=== PATIENT | female | born 1960 | race Caucasian/White ===

== ENCOUNTER → 2023-10-04 11:14 | Outpatient (CLI) | payer MEDICARE, SELFPAY ==
--- NOTE | 2023-10-04 | DI.MG.S_ITS ---
BILATERAL DIGITAL SCREENING MAMMOGRAM 3D/2D WITH CAD: 10/04/2023 CLINICAL: Routine screening. Comparison is made to exam dated: 11/09/2020 mammogram - out side. There are scattered areas of fibroglandular density in both breasts (category b / 25%-50% glandular tissue). Current study was also evaluated with a Computer Aided Detection (CAD) system. There are benign post operative findings in the left breast. No significant masses, calcifications, or other findings are seen in either breast. There has been no significant interval change. IMPRESSION: BENIGN There is no mammographic evidence of malignancy. A 1 year screening mammogram is recommended. Based on the Tyrer Cuzick model (a risk assessment model) the patient's lifetime risk is 6.8% and her 10 year risk is 3.3%. According to the ACR, ACS, and NCCN guidelines, an annual breast MRI exam along with mammogram is recommended if the patient's lifetime risk is 20% or greater. This exam was interpreted at Station ID: [id number]. NOTE: For mammograms, a report in lay terms will be sent to the patient. Approximately 15% of breast malignancies will not be visualized mammographically. In the management of a palpable breast mass, a negative mammogram must not discourage biopsy of a clinically suspicious lesion. Electronically Signed By: Natanael ye/yasmani:10/04/2023 16:23:46 letter sent: Normal Exam ACR BI-RADS Category 2: Benign Finding(s) 3342F
== END ==
LOC: MAMMO 11:17
PROVIDERS: Referring Provider Registered Nurse; Visit Provider Registered Nurse
DX: Z12.31 Encounter for screening mammogram for malignant neoplasm of breast (principal); R92.323 Mammographic fibroglandular density, bilateral breasts
CPT/HCPCS: 77063; 77067

== ENCOUNTER 2023-11-24 12:45 | Emergency (ER) | payer MEDICARE, OTHER, SELFPAY ==
[2023-11-24] VITALS (11 sets, daily range): BP systolic 124–155; BP diastolic 65–89; PULSE 59–71; RESP 11–34; TEMP 36.5; O2SAT 95–100; BMI 25.6
--- NOTE | 2023-11-24 13:11 | DI.RAD.S_ITS ---
PROCEDURE: XR CHEST 1V INDICATIONS: chest pain TECHNIQUE: One view of the chest was acquired. COMPARISON: None. FINDINGS: Surgical changes and devices: None. Lungs and pleura: Lungs are clear. No pleural effusions or pneumothorax. Mediastinum: Mediastinal contours appear normal. Heart size is normal. Bones and chest wall: No suspicious bony lesions. Overlying soft tissues appear unremarkable. IMPRESSION: No acute cardiopulmonary abnormality is seen. Dictated by: Eyal Salvador M.D. on 11/24/2023 at 13:41 Approved by: Eyal Salvador M.D. on 11/24/2023 at 13:42
--- NOTE | 2023-11-24 13:17 | ED_ITS ---
HPI - General Adult General Chief complaint: Chest Pain Stated complaint: chest pain. Time Seen by Provider: 11/24/23 13:17 History of Present Illness HPI narrative: 63-year-old female presents with chest pain. She states to me that for the last several days, she has had intermittent left-sided pleuritic chest pain, worse with deep breathing and coughing, not affected by exertion. She denies similar prior symptoms. No shortness of breath, fevers or chills, nausea or vomiting, cough, rhinorrhea, sore throat, back or abdominal or flank pain, leg swelling or leg pain, personal or family history of blood clots. She denies smoking or illicit drug use. She doess have prominent family history in men on paternal side for what sounds like cardiomyopathy, though she is not sure of all details. Related Data Previous Rx's Medication Instructions Recorded doxycycline monohydrate 100 mg 100 mg PO BID #14 caps 11/24/23 capsule Allergies Allergy/AdvReac Type Severity Reaction Status Date / Time No Known Drug Allergies Allergy Verified 11/24/23 13:25 Review of Systems Review of Systems Narrative: Constitutional: no fever, no chills Eyes: no visual disturbance, no discharge Ears, Nose, Mouth, Throat: no rhinorrhea, no sore throat Cardiovascular: +chest pain, no palpitations Respiratory: + cough, no shortness of breath Gastrointestinal: no abdominal pain, no vomiting, no diarrhea Genitourinary: no dysuria, no hematuria Musculoskeletal: no back pain, no neck stiffness Skin: no rash, no wound Neurological: no focal weakness, no focal numbness Patient History Social History Smoking Status: Never smoker Exam Narrative Exam Narrative: Const: no acute distress, non toxic appearing; calm, conversant, pleasant Eyes: PERRLA, EOMI ENT: mucous membranes moist Neck: supple, non-tender Resp: no respiratory distress, clear to auscultation bilaterally Card: regular rate and rhythm, no murmurs; no chest wall tenderness Abd: non tender diffusely, no rigidity or rebound or guarding Back: no T or L spine tenderness, no CVA tenderness bilaterally Extrem: no deformities, no swelling bilateral lower extremities, 2+ distal pulses all extremities Neuro: ANOx4, warehouse processor grossly intact, grossly intact sensation and strength all extremities Skin: no rash, warm and dry Initial Vital Signs Initial Vital Signs: Vital Signs Temperature 97.7 F 11/24/23 12:47 Pulse Rate 71 11/24/23 12:47 Respiratory Rate 16 11/24/23 12:47 Blood Pressure 155/72 H 11/24/23 12:47 Pulse Oximetry 100 11/24/23 12:47 Oxygen Delivery Method Room Air 11/24/23 12:47 Course Course Course Narrative: This presentation is most suggestive of viral syndrome with associated pleuritis, bronchitis, though I have considered a broad differential including but not limited to pneumonia, ACS, pulmonary embolism, pneumothorax, CHF, asthma or COPD, among others. I am obtaining EKG, labs including troponin and D-dimer along with CBC, chemistry, viral swab, chest x-ray and will closely reassess. Patient declines medications currently. CBC reassuring. INR within normal limits. PTT mildly elevated. Chemistry grossly reassuring. Troponin reassuring. Lipase reassuring. Viral swab negative. D-dimer reassuring. EKG sinus bradycardia without acute ischemia or immediately concerning interval prolongation on my review. Radiology review of imaging below, which I agree with on my independent review: FINDINGS: Surgical changes and devices: None. Lungs and pleura: Lungs are clear. No pleural effusions or pneumothorax. Mediastinum: Mediastinal contours appear normal. Heart size is normal. Bones and chest wall: No suspicious bony lesions. Overlying soft tissues appear unremarkable. IMPRESSION: No acute cardiopulmonary abnormality is seen. Dictated by: Eyal Salvador M.D. on 11/24/2023 at 13:41 In setting of reassuring workup, I suspect bronchitis may be driving symptoms. I recommended and prescribed 1 week of doxycycline 100 mg p.o. b.i.d.. Patient nonetheless understood strict importance of close follow-up and return precautions. She had no other new concerns and appeared well. Repeat exam and vital signs reassuring. Questions answered. Plan reviewed. Patient discharged in stable condition. Orders Ordered: ED Orders 11/24/23 13:01 Complete Blood Count AUTO DIFF Stat Comprehensive Metabolic Panel Stat D Dimer Stat Lipase Stat Magnesium Stat PTT Partial Thromboplastin Joey Stat Prothrombin Time INR Stat Troponin & CK Cardiac Panel Stat 11/24/23 13:11 XR chest 1V Stat 11/24/23 13:22 EKG-12 Lead Stat 11/24/23 14:06 Covid-19 + FLU A/B + RSV - PCR Stat Discontinued Medications Aspirin (Aspirin 81 Mg Chew Tab) 324 mg PO NOW ONE Stop: 11/24/23 13:12 Last Admin: 11/24/23 14:55 Dose: Not Given Documented By: BS Vital Signs Vital signs: Vital Signs - 8 hr 11/24/23 13:30 11/24/23 13:31 11/24/23 13:31 Pulse Rate 60 59 L Respiratory Rate 21 34 H Blood Pressure 143/65 H Pulse Oximetry 98 97 Oxygen Delivery Method Room Air 11/24/23 14:07 11/24/23 14:10 11/24/23 14:10 Pulse Rate 62 61 Respiratory Rate 18 Blood Pressure 127/89 Pulse Oximetry 100 100 Oxygen Delivery Method 11/24/23 14:30 11/24/23 14:30 11/24/23 15:00 Pulse Rate 61 64 Respiratory Rate 12 11 L Blood Pressure 130/83 Pulse Oximetry 100 97 Oxygen Delivery Method Room Air 11/24/23 15:00 11/24/23 15:30 11/24/23 15:30 Pulse Rate 61 Respiratory Rate 11 L Blood Pressure 129/78 124/81 Pulse Oximetry 100 Oxygen Delivery Method Room Air Medical Decision Making Lab Data 11/24/23 13:01 11/24/23 13:01 Labs: Lab Results 11/24/23 11/24/23 Range/Units 13:01 14:06 WBC 5.7 (4.5-11.0) X10^3/uL RBC 4.47 (4.0-5.2) X10^6/uL Hgb 13.1 (12.0-16.0) g/dL Hct 38.1 (36-46) % MCV 85.3 (80-100) fL MCH 29.3 (26-34) PG MCHC 34.4 (30-36) % RDW 13.3 (11.6-14.8) % Plt Count 368 (150-400) X10^3/uL Neut % (Auto) 55.5 (50-75) % Lymph % (Auto) 36.4 (25-40) % Josephine % (Auto) 5.6 (3-14) % Eos % (Auto) 1.9 L (2-4) % Baso % (Auto) 0.6 (0-2) % Neut # (Auto) 3100 (6423-5080) /uL Lymph # (Auto) 2100 (4670-9468) /uL Josephine # (Auto) 300 (0-900) /uL Eos # (Auto) 100 (0-450) /uL Baso # (Auto) 0 (0-100) /uL PT 11.3 (9.4-12.5) SECONDS INR 1.0 (0.9-1.3) APTT 37 H (25.1-36.5) SECONDS D-Dimer 379 (<500) ng/ml Sodium 138 (137-145) mmol/L Potassium 3.7 (3.4-5.1) mmol/L Chloride 105 (98-107) mmol/L Carbon Dioxide 28 (22-32) mmol/L BUN 13 (7-17) mg/dL Creatinine 0.68 (0.52-1.04) mg/dL Estimated GFR > 60 (>60) mL/min BUN/Creatinine Ratio 19.1 (6-22) Glucose 96 (80-110) mg/dL Calcium 9.3 (8.4-10.2) mg/dL Magnesium 2.1 (1.6-2.3) mg/dL Total Bilirubin 0.6 (0.2-1.3) mg/dL AST 26 (14-36) IU/L ALT 20 (<35) IU/L Alkaline Phosphatase 53 (38-126) U/L Total Creatine Kinase 46 (30-135) U/L Troponin I < 0.012 (0.01-0.034) ng/mL Total Protein 8.0 (6.3-8.2) g/dL Albumin 4.5 (3.5-5.0) g/dL Globulin 3.5 (1.7-4.1) g/dL Albumin/Globulin Ratio 1.3 (1.0-2.8) Lipase 161 (23-300) U/L SARS-CoV-2 (PCR) Negative (Negative) Influenza A (RT-PCR) Flu a negative (NEGATIVE) Influenza B (RT-PCR) Flu b negative (NEGATIVE) RSV (PCR) Negative (Negative) Discharge Plan Departure Patient Disposition: Home Clinical Impression: Chest pain Instructions: DI for Chest Pain Activity Restrictions/Additional Instructions: It was a pleasure taking care of you today. It is important to fully read and understand the below. Please ask us if you have any questions. We think the most likely cause of your symptoms may be bronchitis or similar. I am prescribing doxycycline as discussed. However, it is still important to see your primary doctor within 3-5 days to be reassessed and discuss further testing and treatment. 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 If your symptoms change or worsen, it is very important you immediately seek medical care. If you have any new or worsening pain, lightheadedness or passing out, shortness of breath, fever, vomiting, confusion, numbness, weakness, or anything else that concerns you, please immediately seek medical care. If you have been prescribed any medications: please read the drug package inserts on how to properly use the medication and any potential side effects. If you had labs (blood tests) or imaging (CT scan or x-rays) done during your visit: please follow up on the results of these with your primary care doctor, as discussed. In addition, please know the results we received today may be preliminary. Our usual practice is to follow up on tests within a few days of a patient's discharge from the Emergency Department and notify you of any changes. These may lead to changes to your treatment plan. However, the best way to obtain and interpret these test results is through your Primary Care Provider. If you need to update your contact information, please stop by the front office attendant and alert the Registration personnel before you leave the Emergency Department. Thank you for the opportunity to participate in your healthcare. We are always here and happy to see you in the future. Prescriptions: New doxycycline monohydrate 100 mg capsule 100 mg PO BID Qty: 14 0RF Referrals: Juanita Olivares ARNP [Primary Care Provider] - Stand Alone Forms: Patient Portal/API
[2023-11-24 13:26] LABS: Add Manual Diff / Slide Review NO; Basophils Absolute Auto 0 /uL (0-100); Basophils Percent Auto 0.6 % (0-2); Eosinophils Absolute Auto 100 /uL (0-450); Eosinophils Percent Auto 1.9 % (2-4); Hematocrit 38.1 % (36-46); Hemoglobin 13.1 g/dL (12.0-16.0); Lymphocytes Absolute Auto 2100 /uL (1100-4500); Lymphocytes Percent Auto 36.4 % (25-40); Mean Corpuscular HGB Conc 34.4 % (30-36); Mean Corpuscular Hemoglobin 29.3 PG (26-34); Mean Corpuscular Volume 85.3 fL (80-100); Monocytes Absolute Auto 300 /uL (0-900); Monocytes Percent Auto 5.6 % (3-14); Neutrophils Absolute Auto 3100 /uL (1500-7000); Neutrophils Percent Auto 55.5 % (50-75); Platelet Count 368 X10^3/uL (150-400); Red Blood Cell Count 4.47 X10^6/uL (4.0-5.2); Red Cell Distribution Width 13.3 % (11.6-14.8); White Blood Cell Count 5.7 X10^3/uL (4.5-11.0)
[2023-11-24 13:29] LABS: Prothrombin Time 11.3 SECONDS (9.4-12.5)
[2023-11-24 13:31] LABS: PTT Partial Thromboplastin Tim 37 SECONDS (25.1-36.5)
[2023-11-24 13:32] LABS: Alanine Aminotransferase 20 IU/L (<35); Albumin 4.5 g/dL (3.5-5.0); Albumin Globulin Ratio 1.3 (1.0-2.8); Alkaline Phosphatase 53 U/L (38-126); Aspartate Aminotransferase 26 IU/L (14-36); BUN Creatinine Ratio 19.1 (6-22); Bilirubin Total 0.6 mg/dL (0.2-1.3); Blood Urea Nitrogen 13 mg/dL (7-17); Calcium 9.3 mg/dL (8.4-10.2); Carbon Dioxide 28 mmol/L (22-32); Chloride 105 mmol/L (98-107); Creatine Kinase 46 U/L (30-135); Estimated Glomerular Filt Rate > 60 mL/min (>60); Globulin 3.5 g/dL (1.7-4.1); Glucose 96 mg/dL (80-110); HEMOLYSIS < 15 (0-50); Lipase 161 U/L (23-300); Magnesium 2.1 mg/dL (1.6-2.3); Potassium 3.7 mmol/L (3.4-5.1); Sodium 138 mmol/L (137-145)
[2023-11-24 13:43] LABS: Troponin I < 0.012 ng/mL (0.01-0.034)
[2023-11-24 14:11] LABS: D Dimer 379 ng/ml (<500)
[2023-11-24 15:18] LABS: Influenza A - CEPHEID Flu A NEGATIVE (NEGATIVE); Influenza B - CEPHEID Flu B NEGATIVE (NEGATIVE); Respiratory Syncytial Virus Negative (Negative)
[2023-11-24 15:19] LABS: COVID-19 CEPHEID 4-PLEX PCR Negative (Negative)
== END 2023-11-24 15:41 | disposition home or self-care (01) ==
PROVIDERS: Emergency Provider Emergency Medicine; PCP Registered Nurse
DX: R07.9 Chest pain, unspecified (principal)
CPT/HCPCS: 0241U; 36415; 71045; 80053; 82550; 83690; 83735; 84484; 85025; 85379; 85610; 85730; 93005; 99284

== ENCOUNTER → 2023-12-26 09:43 | Outpatient (CLI) | payer MEDICARE, OTHER, SELFPAY ==
--- NOTE | 2023-12-26 | DI.RAD.S_ITS ---
Bone Density Report Name: ESEQUIEL SILVESTRE Age: 63 Sex: Female Ethnicity: White Date of : 1960 Indication: postmenopausal; screening for osteoporosis; Referring Provider: JOSE DE LUNA Study: Bone densitometry was performed. Exam Date: December 26, 2023 Accession number: [id number] Bone Density: Region BMD T-score Z-score Classification AP Spine(L1-L4) 0.751 -2.7 -0.9 Osteoporosis Femoral Neck (Left) 0.638 -1.9 -0.4 Osteopenia Total Hip (Left) 0.798 -1.2 0.1 Osteopenia Femoral Neck (Right) 0.631 -2.0 -0.4 Osteopenia Total Hip (Right) 0.789 -1.3 0.0 Osteopenia Total Hip Mean 0.793 -1.3 0.1 Osteopenia World Health Organization criteria for BMD impression classify patients as: Normal (T-score at or above -1.0), Osteopenia (T-score between -1.0 and -2.5), or Osteoporosis (T-score at or below -2.5). 10-year Fracture Risk: FRAX not reported because: Some T-score for Spine Total or Hip Total or Femoral Neck at or below -2.5 Impression: The patient has osteoporosis, based on the Total Spine T-score. Discussion: INCREASED RISK OF FRACTURE. BONE DENSITY IS UNDESIRABLY LOW AT ONE OR MORE SKELETAL SITES, CONSISTENT WITH POSTMENOPAUSAL OSTEOPOROSIS. This patient's lowest T-score meets the World Health Organization's (WHO) criteria for osteoporosis at one or more sites (T-score -2.5 or below). In untreated patients, the risk of osteoporotic fracture increases approximately two-fold for each 1.0 SD decrease in T-score. Low bone density is not the only risk factor for fracture; also consider factors such as patient's age, frailty or poor health, risk of falling, risk of injury, previous osteoporotic fracture, family history of osteoporosis, cigarette smoking, low body weight, etc. Not everyone with low bone mineral density has osteoporosis; osteomalacia and other metabolic bone disorders should also be considered. Patients who have osteoporosis should be evaluated for specific diseases and conditions (secondary causes) that may cause or contribute to bone loss. The [place] [employer]ocrinologists (AACE) and National Osteoporosis Foundation (NOF) recommend pharmacologic intervention for all postmenopausal women whose T-score is in this range. The patient should follow a healthful lifestyle (good nutrition with adequate calcium and vitamin D, and appropriate weight-bearing exercise). Follow-Up: Consider a repeat BMD and Vertebral Fracture Assessment (VFA) exam in 2 years or sooner if medically necessary, to reassess this patient's status. Reported by: [facility] DINO MATHUR M.D. on 12/26/2023 10:11:00 AM.
== END ==
PROVIDERS: PCP Family Medicine; Referring Provider Registered Nurse; Visit Provider Registered Nurse
DX: M81.0 Age-related osteoporosis without current pathological fracture (principal); Z13.820 Encounter for screening for osteoporosis; Z78.0 Asymptomatic menopausal state
CPT/HCPCS: 77080

== ENCOUNTER → 2024-02-02 12:53 | Outpatient (CLI) | payer MEDICARE, OTHER, SELFPAY ==
[2024-02-02 14:48] LABS: Alanine Aminotransferase 20 IU/L (<35); Albumin 4.4 g/dL (3.5-5.0); Albumin Globulin Ratio 1.5 (1.0-2.8); Alkaline Phosphatase 53 U/L (38-126); Aspartate Aminotransferase 30 IU/L (14-36); BUN Creatinine Ratio 19.6 (6-22); Bilirubin Total 0.4 mg/dL (0.2-1.3); Blood Urea Nitrogen 19 mg/dL (7-17); Calcium 9.2 mg/dL (8.4-10.2); Carbon Dioxide 29 mmol/L (22-32); Chloride 103 mmol/L (98-107); Estimated Glomerular Filt Rate > 60 mL/min (>60); Globulin 2.9 g/dL (1.7-4.1); Glucose 86 mg/dL (80-110); HEMOLYSIS < 15 (0-50); Potassium 3.8 mmol/L (3.4-5.1); Sodium 136 mmol/L (137-145); Total Protein 7.3 g/dL (6.3-8.2)
== END ==
PROVIDERS: PCP Family Medicine; Referring Provider Family Medicine; Visit Provider Family Medicine
DX: B35.1 Tinea unguium (principal); B35.3 Tinea pedis
CPT/HCPCS: 36415; 80053